=== PATIENT | male | born 1965 ===

== ENCOUNTER 2017-08-04 10:32 | Observation (INO) | payer OTHER ==
[2017-08-04] MEDS ORDERED: NS 1,000 ML IV ONE (10:37)
--- NOTE | 2017-08-04 10:58 | CPEKG ---
Heart Rate: 152 RR Interval: 395 QRSD Interval: 116 QT Interval: 352 QTC Interval: 560 P [place]: 0 QRS [place]: 24 T Wave [place]: -10 EKG Severity - ABNORMAL ECG - EKG Impression: Atrial flutter EKG Impression: RIGHT BUNDLE BRANCH BLOCK Electronically Signed By: Nader Sawyer 04-Aug-2017 20:20:49
[2017-08-04 11:16] LABS: PLATELET COUNT 243 10^3/uL (150-400)
[2017-08-04 11:23] LABS: INR 0.99 (0.83-1.16); PROTIME(PATIENT) 13.3 SEC (12.0-15.0)
[2017-08-04] MEDS ORDERED: HEPARIN 10,000 UNIT/10 ML MDV ONE ×2 (12:22→13:50)
[2017-08-04] MEDS ORDERED: LIDOCAINE 1% 300 MG/30 ML SDV ONE (12:22)
[2017-08-04] MEDS ORDERED: BUPIVACAINE 0.5% 30 ML SDV ONE (12:22)
[2017-08-04] MEDS ORDERED: FAMOTIDINE 20 MG/NACL/50 ML BAG IV ONE (12:23)
[2017-08-04] MEDS ORDERED: MIDAZOLAM 2 MG/2 ML VIAL IVP ONE (12:29)
--- NOTE | 2017-08-04 12:29 | PDANEPAE ---
ANE History of Present Illness SVT/AFlutter ANE Past Medical History - Cardiovascular History Hx Hypertension: No Hx Arrhythmias: Yes Hx Chest Pain: No Hx Coronary Artery / Peripheral Vascular Disease: No Hx CHF / Valvular Disease: No Hx Palpitations: No - Pulmonary History Hx COPD: No Hx Asthma/Reactive Airway Disease: No Hx Recent Upper Respiratory Infection: Yes Hx Oxygen in Use at Home: No Hx Sleep Apnea: Yes - Endocrine History Hx Diabetes: No Hypothyroid: No Hyperthyroid: No Obesity: mild - Renal History Hx Renal Disorders: No - Liver History Hx Hepatic Disorders: No - Cancer History Hx Cancer: No - GI History Hx Gastrointestinal Disorders: No ANE Review of Systems Review of Systems: - Exercise capacity Exercise capacity: >=4 METS - Systems Respiratory: Reports: cough ANE Patient History - Allergies Allergies/Adverse Reactions: No Known Allergies Allergy (Verified 09/04/15 13:43) - Home Medications Home medications: home medication list seen and reviewed Home Medications: Sertraline HCl [Zoloft 100mg (*)] 100 mg PO DAILY 07/31/17 [Last Taken Unknown] traZODone [traZODONE 50MG (*)] 50 mg PO HS 07/31/17 [Last Taken Unknown] - NPO status NPO Status: no food or drink >8 hours - Anes Hx Anes Hx: no prior problems - Smoking Hx Smoking Status: Never smoked - Alcohol Use Alcohol Use: Heavy (recent decrease to 2oz day) - Family Anes Hx Family Anes Hx: none ANE Labs/Vital Signs - Labs Result Diagrams: 08/04/17 11:01 08/04/17 11:01 - Vital Signs Vital Signs: reviewed preoperatively; see RN documention for details Height: 165 cm Weight: 70.8 kg ANE Physical Exam - Airway Neck exam: FROM Mallampati Score: Class 2 - Pulmonary Pulmonary: no respiratory distress - Cardiovascular Cardiovascular: regular rate and rhythym - ASA Status ASA Status: III ANE Anesthesia Plan Anesthesia Plan: general endotracheal anesthesia
--- NOTE | 2017-08-04 12:44 | PDGENHP ---
History & Physical Chief Complaint: SVT History of Present Illness: SVT Relevant Physical Exam: S1S2 tachycardic. CTA. AO x 3 Cardiorespiratory Assessment: Patient has chronic back pain which is worse. He used to drink 1Qt of Tequila per day, has decreased to 1 Celina per day since Jul 28, does not feel tremulous. BP is high since he has stopped BB. He arrived in AFL with 2:1 V response, V rate 150 bpm. He also has adenosine sensitive SVT. He is not breathing deeply due to back pain, when he does, SaO2 is 96% on RA. We discussed options of medical RX for AFL vs combined AFL+SVT ablation at this time. He is anxious to have ablation, understands risks. He understands he may have AFIB in the future. He will have MI prior to ablation given atrial flutter. bakari anesthesiologist Dr. Duarte
[2017-08-04] MEDS ORDERED: DEXAMETHASONE 4 MG/ML VIAL ONE (13:11)
[2017-08-04] MEDS ORDERED: ROCURONIUM 50 MG/5 ML VIAL ONE ×3 (13:11→15:37)
[2017-08-04] MEDS ORDERED: fentaNYL 100 MCG/2 ML INJ ONE ×2 (13:11→13:27)
[2017-08-04] MEDS ORDERED: PROPOFOL 200 MG/20 ML VIAL ONE (13:11)
[2017-08-04] MEDS ORDERED: DESFLURANE 240 ML BOTTLE IH ONE (13:29)
[2017-08-04] MEDS ORDERED: ISOPROTERENOL HCL/D5W 0.2 MG/50 ML BAG IV ONE (14:48)
[2017-08-04] MEDS ORDERED: SUGAMMADEX SODIUM 200 MG/2 ML VIAL IVP ONE (16:04)
[2017-08-04] MEDS ORDERED: ONDANSETRON 4 MG/2 ML VIAL ONE (16:08)
--- NOTE | 2017-08-04 16:17 | ECHO ---
[email or web address] [address] [address] Main: [phone] Fax: Transthoracic Echocardiogram Name: ADELAIDE DUFFY MR#: [id number] Study Date: 08/04/2017 Study Time: 11:58 AM Date of : 1965 Age: 52 year(s) Height: 182.9 cm (72 in.) Weight: 104.33 kg (230 lb.) BSA: 2.26 m2 Gender: Male Examination: Echo Indication: Atrial Flutter Image Quality: Technically Difficult Contrast: Requested by: Nader Sawyer BP: 156 mmHg/111 mmHg Heart Rate: 151 bpm Rhythm: Tachycardia Indication: Atrial Flutter Procedure Staff Credit Card Clerk: Emily Corey Physician: Duane Simmons Requesting Provider: Conclusions: Global hypercontractility of the left ventricle. EF is 65 %. Normal RV function. There is no significant mitral valve regurgitation. There is no aortic valve regurgitation. Trivial tricuspid valve regurgitation. Normal size ascending aorta measuring 3.5 cm. Measurements: Chambers Valvular Assessment AV/MV Valvular Assessment TV/PV Normal Normal Normal Name Value Range Name Value Range Name Value Range LVEF (MOD4): 65 % (>=55 %) AV Vmax: 1.24 m/s (1 m/s-1.7 PV Vmax: 1.10 m/s (0.6 m/s-0.9 m/s) m/s) AV maxP mmHg ( - ) PV PGmax: 5 mmHg ( - ) LVOT Vmax: 1.01 m/s (0.7 m/s-1.1 m/s) MV E Vmax: 0.55 m/s ( - ) MV A Vmax: 0.83 m/s ( - ) MV E/A: 0.66 ( - ) Continued Measurements: Chambers Valvular Assessment AV/MV Name Value Name Value LADs Lon.8 cm MV DecTime: 215 m/s LA Area: 18.0 cm2 MV E/E' Lateral: 7.20 LA Volume: 34 ml LA Volume Index: 15.0 ml/m2 Patient: ADELAIDE DUFFY Study Date: 08/04/2017 Page 1 of 2 11:58 AM Additional Vessels Name Value Ao Ascendin.5 cm Findings: Left Ventricle: Normal size left ventricle. Global hypercontractility of the left ventricle. EF is 65 %. No regional wall motion abnormality. Right Ventricle: Normal size right ventricle. Normal RV function. Left Atrium: The left atrium is normal in size. Right Atrium: The right atrium is normal in size. Mitral Valve: The mitral valve is normal in appearance and function. There is no significant mitral valve regurgitation. No mitral stenosis is present. Aortic Valve: The aortic valve is tri-leaflet and functions normally. There is no aortic valve regurgitation. No aortic valve stenosis is present. Tricuspid Valve: Tricuspid valve not well visualized. Trivial tricuspid valve regurgitation. Pulmonic Valve: Pulmonary valve not well visualized. Aorta: Normal size ascending aorta measuring 3.5 cm. IVC: The IVC is not well visualized. Pericardium: No pericardial effusion. (No Signature Object) Patient: ADELAIDE DUFFY Study Date: 08/04/2017 Page 2 of 2 11:58 AM [id number]
[2017-08-04] MEDS ORDERED: ACETAMINOPHEN 325 MG TAB PO PRN (16:24)
[2017-08-04] MEDS ORDERED: ONDANSETRON 4 MG/2 ML VIAL IVP PRN ×2 (16:24→16:34)
--- NOTE | 2017-08-04 16:24 | EPPROC ---
Electrophysiology Procedure Note: ELECTROPHYSIOLOGIC STUDY AND CATHETER MEDIATED ABLATION FOR SUBEUSTACHIAN ISTHMUS DEPENDENT COUNTERCLOCKWISE ATRIAL FLUTTER AND ATYPICAL FAST SLOW AVNRT INDICATION: Adenosine sensitive long RP tachycardia Atrial flutter noted on day of procedure PROCEDURES PERFORMED: 00640-12 EP evaluation with RA/RV/LA pace/record, with arrhythmia induction 41811-70 EP evaluation with RA/RV pace record, insert/reposition catheter, with arrhythmia induction 56032 SVT ablation Second arrhythmia 69589 3D mapping Fluoroscopy Catheters & Anesthesia: The patient arrived in the Electrophysiology Laboratory in the fasting state. The right clavicular region, right groin, and left groin area were prepped and draped in the usual sterile manner. Anesthesiologist Dr. Bird Duarte administered general anesthesia. Appropriate non-invasive blood pressure, pulse oximetry and end-tidal CO2 monitoring was established. All catheters were placed percutaneously using the modified Seldinger technique , and advanced into position under fluoroscopic guidance. One #7 Uzbek deflectable octapolar electrode catheter was advanced to the His-bundle position via the left femoral vein (2mm spacing; except the proximal ring which was 25cm from the tip used for unipolar recordings). One #7 Uzbek deflectable catheter with 10 pairs of electrodes was placed via the left femoral vein into the coronary sinus. One # 7 Uzbek Halo catheter was inserted through the right femoral vein and was placed at the tricuspid annulus. Heparin was administered to keep ACT > 200 seconds. Programmed stimulation was performed from the right atrium, coronary sinus ( left atrium) and right ventricle. Parahisian pacing demonstrated all retrograde conduction over the AV node. There was antegrade slow AV agustin pathway conduction. On arrival to the Electrophysiology Laboratory the patient was in sinus rhythm. Atrial flutter, sustained, was noted pre procedure. During infusion of isoproterenol, on one instance, we induced a sustained long RP tachycardia, RBBB. CL 360 ms AH 110 ms HV 60 ms VA 240 ms. Early local activation was along the septal tricuspid annulus. Entrainment from ventricle dissociated A from V. Differential diagnosis includes atrial tachycardia vs atypical AVNRT with lower common pathway block. Clinically this tachycardia was adenosine sensitive. Prior to 3D mapping, the tachycardia terminated and could not be reinduced again. Therefore we decided to perform empiric slow AV agustin pathway ablation along with cavotricuspid isthmus ablation. A high-resolution 3D (3 dimensional) Carto electroanatomical map of the sub- Eustachian isthmus and right atrium was obtained during pacing of the posterolateral coronary sinus. For ablation of typical atrial flutter, one Agilis sheath was placed in the right atrium. A #8 Uzbek deflectable quadrapolar electrode catheter (2mm-5mm- 2mm spacing) with 3.5 mm irrigated tip electrode and location sensor for the [employer] mapping system was inserted in the long sheath and advanced to the right atrium. Radiofrequency applications were applied between the tricuspid annulus at 0630 oclock as seen in the ROSALINA view and the inferior vena cava. This achieved conduction block across the isthmus. Post ablation, a high- resolution electroanatomical map of the sub-Eustachian isthmus was obtained during pacing of the posterolateral coronary sinus. This confirmed conduction block across the sub-Eustachian isthmus. Bidirectional block was also confirmed by pacing. We also ablated in the slow AV agustin pathway area along the low midseptal tricuspid annulus. Continuous junctional rhythm was noted. Programmed stimulation was continued for 30 min post ablation at graded doses of isoproterenol up to 4 mcg/min. Bidirectional block across CT isthmus persisted and SVT could no longer be induced. The catheters were removed. Long sheath was changed to short sheath. The patient was transferred to the cardiovascular holding area in stable condition. Vascular access sheaths were removed in the holding area. There were no apparent complications. Results: A. Spontaneous Intervals: Pre ablation SCL 610 ms AH 80 ms HV 40 ms Post ablation SCL 550 ms AH 90 ms HV 40 ms B. Antegrade AV agustin function (decremental pacing) Pre ablation FPERP 310 ms SPERP 300 ms WBB CL 290 ms Post ablation FPERP 300 ms WBB CL 290 ms C. Retrograde AV agustin function (decremental pacing) Pre ablation FPERP 560 ms WBB CL 550 ms CONCLUSIONS: 1. Atrial flutter. 2. Successful catheter mediated ablation of cavotricuspid isthmus achieving bi -directional conduction block across cavotricuspid isthmus. 3. Long RP tachycardia, 1 sustained episode seen. Ablation of slow AV agustin pathway done empirically. 4. No atrial arrhythmias inducible post ablation. 5. No apparent complications. Patient Problems: Problems Problem Status Onset Supraventricular tachycardia Acute
[2017-08-04] MEDS ORDERED: ATROPINE SULFATE 1 MG/10 ML SYR ONE (16:33)
[2017-08-04] MEDS ORDERED: fentaNYL 100 MCG/2 ML INJ IVP PRN (16:34)
[2017-08-04] MEDS ORDERED: ACETAMINOPHEN 500 MG TAB PO PRN (16:34)
[2017-08-04] MEDS ORDERED: ALBUTEROL 3 ML DEYVIAL IH PRN (16:34)
[2017-08-04] MEDS ORDERED: HYDROCODONE/APAP 5/325 TAB PO PRN (16:34)
[2017-08-04] MEDS ORDERED: NALOXONE HCL 0.4 MG/ML INJ IVP PRN (16:34)
--- NOTE | 2017-08-04 16:35 | POSTANESTH ---
Post Anesthetic Evaluation Cardiovascular Status: Normal, Stable Respiratory Status: Normal, Stable Level of Consciousness/Mental Status: Can Participate in Eval Pain Control: Adequate, Prn Tx Ordered Nausea/Vomiting Control: Adequate, Prn Tx Ordered Complications Possibly Related to Anesthesia: None Noted
--- NOTE | 2017-08-04 16:43 | CPEKG ---
Heart Rate: 101 RR Interval: 594 P-R Interval: 164 QRSD Interval: 78 QT Interval: 380 QTC Interval: 493 P [place]: 37 QRS [place]: 19 T Wave [place]: 21 EKG Severity - ABNORMAL ECG - EKG Impression: SINUS TACHYCARDIA EKG Impression: BORDERLINE PROLONGED QT INTERVAL Electronically Signed By: Nader Sawyer 04-Aug-2017 20:20:32
[2017-08-04] MEDS: BENZONATATE 100 MG CAP PO PRN ×2 (17:06→21:27)
[2017-08-04] MEDS: DILTIAZEM 60 MG TAB PO SCH (18:45)
[2017-08-04] MEDS ORDERED: traZODone 50 MG TAB PO SCH (21:00)
[2017-08-05] MEDS: OXYCODONE/APAP 5/325 TAB PO PRN ×2 (00:11→06:16)
[2017-08-05] MEDS: DILTIAZEM 60 MG TAB PO SCH ×3 (00:12→11:10)
[2017-08-05 04:24] LABS: PLATELET COUNT 204 10^3/uL (150-400)
[2017-08-05 04:38] LABS: CREATINE KINASE 326 IU/L (0-224); INR 0.99 (0.83-1.16); PROTIME(PATIENT) 13.3 SEC (12.0-15.0)
[2017-08-05] MEDS: BENZONATATE 100 MG CAP PO PRN (06:12)
[2017-08-05 07:12] VITALS: RESP 12; TEMP 97.9; O2SAT 90
--- NOTE | 2017-08-05 08:57 | CPEKG ---
Heart Rate: 94 RR Interval: 638 P-R Interval: 168 QRSD Interval: 86 QT Interval: 348 QTC Interval: 436 P [place]: 53 QRS [place]: 53 T Wave [place]: 26 EKG Severity - BORDERLINE ECG - EKG Impression: SINUS RHYTHM EKG Impression: BORDERLINE T WAVE ABNORMALITIES Electronically Signed By: Duane Simmons 05-Aug-2017 13:55:36
[2017-08-05] MEDS ORDERED: ASPIRIN 325 MG TAB PO SCH (09:00)
[2017-08-05] MEDS ORDERED: SERTRALINE HCL 100 MG TAB PO SCH (09:00)
--- NOTE | 2017-08-05 09:13 | ECHO ---
[email or web address] [address] [address] Main: [phone] Fax: Transesophageal Echocardiography Name: ADELAIDE DUFFY MR#: [id number] Study Date: 08/04/2017 Study Time: 01:24 PM Date of : 1965 Age: 52 year(s) Height: ( ) Weight: ( ) BSA: Gender: Male Examination: MI Indication: r/o ALICJA clot pre-ablation Image Quality: Contrast: I.V. dose of agitated saline Requested by: Nader Sawyer Heart Rate: Rhythm: BP: / Procedure Staff Publication Manager: Emily Coery Physician: Nader Sawyer Requesting Provider: MI Exam Details Contrast: I.V. dose of agitated saline Measurements: Chambers Valvular Assessment AV/MV Valvular Assessment TV/PV Normal Normal Normal Name Value Range Name Value Range Name Value Range EF Range: 60-65 % Additional Measurements: Findings: Left Ventricle: Normal size left ventricle. Normal global systolic LV function. The ejection fraction is estimated to be 60-65 %. Right Ventricle: Normal size right ventricle. Normal RV function. Left Atrium: An agitated saline study was performed and was negative for intracardiac shunting. No thrombus is noted in the left atrium. Left Atrial Appendage: No thrombus in left appendage. Mitral Valve: The mitral valve is normal in appearance and function. Trivial to mild mitral regurgitation. Aortic Valve: Patient: ADELAIDE DUFFY Study Date: 08/04/2017 Page 1 of 2 01:24 PM The aortic valve is tri-leaflet and functions normally. There is no aortic valve regurgitation. Tricuspid Valve: The tricuspid valve is normal in appearance and function. Trivial tricuspid valve regurgitation. Pericardium: No pericardial effusion. l1n (No Signature Object) Patient: ADELAIDE DUFFY Study Date: 08/04/2017 Page 2 of 2 01:24 PM [id number]
--- NOTE | 2017-08-05 09:16 | ECHO ---
[email or web address] [id number] Main: [phone] Fax: Transthoracic Echocardiogram Name: ADELAIDE DUFFY MR#: [id number] Study Date: 08/05/2017 Study Time: 08:31 AM Date of : 1965 Age: 52 year(s) Height: 182.9 cm (72 in.) Weight: 104.33 kg (230 lb.) BSA: 2.26 m2 Gender: Male Examination: Limited Echo Indication: F/U post EP study Image Quality: Contrast: Requested by: Nader Sawyer BP: 122 mmHg/76 mmHg Heart Rate: Rhythm: Indication: F/U post EP study Procedure Staff Mineral Surveying Technician: Michelle Corey Physician: Nader Sawyer Requesting Provider: Nader Sawyer Conclusions: Global hypercontractility of the left ventricle. The ejection fraction is estimated to be 70-75 %. No pericardial effusion. Measurements: Chambers Valvular Assessment AV/MV Valvular Assessment TV/PV Normal Normal Normal Name Value Range Name Value Range Name Value Range EF Range: 70-75 % Continued Measurements: Findings: Left Ventricle: Global hypercontractility of the left ventricle. The ejection fraction is estimated to be 70-75 %. No regional wall motion abnormality. Mitral Valve: Mild mitral valve regurgitation is present. Pericardium: No pericardial effusion. (No Signature Object) Patient: ADELAIDE DUFFY Study Date: 08/05/2017 Page 1 of 1 08:31 AM [id number]
[2017-08-05 11:10] VITALS: BP 120/80; PULSE 78
--- NOTE | 2017-08-05 11:15 | ASDISCHSUM ---
Discharge Information Plan Status:Home with No Needs Medically Cleared to Leave:08/04/2017 Discharge Date:08/05/2017 11:10 AM CM D/C Disposition:Home, Routine, Self-Care ADT D/C Disposition:Home, Routine, Self-Care Projected Discharge Date:08/05/2017 11:10 AM Transportation at D/C:Family Discharge Delay Reason: Follow-Up Date:08/05/2017 11:10 AM Discharge Slot: Final Diagnosis: Placement Information Patient Contact Information Contact Name:ARCHIE Relationship: Address: Work Phone: City: [facility] Phone: State/[place] [facility] Code: Email: Financial Information Financial Class:HMO and PPO Plans Primary Plan Desc:[employer] [facility] Primary Plan Number:[id number] Secondary Plan Desc: Secondary Plan Number: Assessment Information LACE LACE Length of stay for Answers: Less than 1 day current admission Acuity / Level of Care Answers: No. Comorbidities - select Answers: Cerebrovascular disease all that apply Emergency dept visits in Answers: 0 last 6 months Score: 1 Date Signed: 08/05/2017 10:32 AM Electronically Signed By:Marisol Mclean RN Intervention Information
--- NOTE | 2017-08-05 19:52 | GDS ---
[f rep st] DISCHARGE SUMMARY DISCHARGE DIAGNOSES: 1. Supraventricular tachycardia with long RP status post ablation of slow atrioventricular agustin pathway. 2. Atrial flutter status post ablation. BRIEF HISTORY: This is a patient who was referred to Dr. Sawyer by Dr. Holbrook. He has a 10-year history of SVT with increasing episodes up to 2-3 per month. He presented to the ER and had documented long RP SVT. This was stopped by adenosine; however, did reoccur 3 times after receiving adenosine in the ER. HOSPITAL PROCEDURES: Prior to presenting to the EP lab, he was in atrial flutter. This had previously not been documented. At EP study, initially sustained long RP tachycardia, was induced; however, when this terminated it was not able to be re-induced. Ablation of cavotricuspid isthmus achieving bi - directional block. Also ablated was the slow AV agustin pathway along the low mid septal tricuspid anulus. The patient has done well overnight. There were no arrhythmias noted on telemetry. He does report he had a recent back injury and his back pain was worsened after lying flat for so many hours yesterday. He has taken 2 Percocet overnight with relief. He also has had a cough for the last few weeks. He took Tessalon Perles overnight with relief. He requested 1- 2 day supply both of these at the time of discharge. He denies any chest pain, pressure, tightness. No shortness of breath or pain at his groin sites. TESTING DONE: Transesophageal echocardiogram demonstrated ejection fraction of 60% to 65%. Agitated saline study was negative for intracardiac shunting. Transthoracic echocardiogram prior to discharge demonstrated ejection fraction of 70% to 75% with no pericardial effusion. A 12-lead EKG demonstrates sinus rhythm without acute ST-T wave changes. LAB WORK: WBC is 14.65, hemoglobin is 12.9, hematocrit is 39.6, platelets 204. Sodium 141, potassium 4.6, chloride 105, bicarb 24, BUN 13, creatinine 1.2. Glucose 108, CK 326, CK fraction 4.07, CK percent 1.2, troponin 0.701. PHYSICAL EXAM: VITAL SIGNS: Blood pressure is 122/76, pulse is 79, respirations 12, temperature 36.6, O2 saturation on room air is 90%. GENERAL: He is alert and oriented, lying in bed, in no acute distress. CARDIAC: Regular rate and rhythm without murmur, rub, or gallop. LUNGS: Fine crackles in the bases. ABDOMEN: Soft and nontender. Groin sites are without bleeding or hematoma. EXTREMITIES: Lower extremities are warm. No discoloration. No lower extremity edema. Bilateral +2 pedal pulses. DISCHARGE INSTRUCTIONS: Post ablation activity restrictions were reviewed verbally and he was given written instructions at the time of discharge. DISCHARGE MEDICATIONS: Please see discharge medication reconciliation. Of note , he had been changed from metoprolol to Cardizem at this admission. He was taking immediate release. At discharge, he was given Cardizem CD 240 mg once a day. He was given 2 Percocet for his back pain and he was given 2 days worth of Tessalon Perles for his cough. He will take 81 mg of aspirin daily for 6 weeks post ablation. He was instructed not to take Tylenol with his Percocet. FOLLOWUP: He has a followup with Dr. Sawyer on September 10 at 1:30. He was instructed to keep track of his blood pressures and bring his blood pressure log with him at that time. /[id number]/MODL MTDD
== END 2017-08-05 11:10 | disposition home or self-care (01) ==
LOC: FCATH 10:32 → F2W 16:30
PROVIDERS: ADMIT Internal Medicine Cardiovascular Disease; ATTEND Internal Medicine Cardiovascular Disease
PROC: 02563ZZ Destruction of Right Atrium, Percutaneous Approach (ICD-10-PCS; principal; 2017-08-04)
PROC: B245ZZ4 Ultrasonography of Left Heart, Transesophageal (ICD-10-PCS; principal; 2017-08-04)
PROC: 02K83ZZ Map Conduction Mechanism, Percutaneous Approach (ICD-10-PCS; principal; 2017-08-04)
PROC: 4A023FZ Measurement of Cardiac Rhythm, Percutaneous Approach (ICD-10-PCS; principal; 2017-08-04)
DX: I47.2 Ventricular tachycardia (principal); I48.91 Unspecified atrial fibrillation
CPT/HCPCS: 93005; 93306; 93308; 93312; 93613; 93621; 93623; 93653; G0378; C1731; C1732; C1766; J0461; J1100; J1644; J2250; J2405; J2704; J3010